=== PATIENT | male | born 1955 | race Caucasian/White ===

== ENCOUNTER → 2021-12-07 | Outpatient (CLI) | payer OTHER | END | disposition home or self-care (01) | LOC: COVID19 15:49 | PROVIDERS: ATTEND Internal Medicine | DX: Z20.822 Contact with and (suspected) exposure to COVID-19 (principal) ==

== ENCOUNTER 2022-04-19 10:51 | Inpatient (IN) | payer OTHER ==
[~2022-04-19] VITALS: Ht 180.3 cm; Wt 116.3 kg
[2022-04-19 11:02] VITALS: BP 204/111
[2022-04-19 11:32] LABS: BASO % 0.1 % (0.0-1.0); EOS # 0.1 10*3/uL (0.0-0.4); EOS % 1.5 % (1.0-4.0); HEMATOCRIT 37.9 % (42.0-52.0); LYMPH # 0.9 10*3/uL (1.3-4.4); LYMPH % 12.1 % (27.0-41.0); MEAN CELL VOLUME 96.7 fl (80.0-94.0); MEAN CORPUSCULAR HGB 30.9 pg (27.0-31.0); MEAN CORPUSCULAR HGB CONC 31.9 g/dl (33.0-37.0); MEAN PLATELET VOLUME 10.2 fl (9.6-12.3); MONO # 0.9 10*3/uL (0.1-1.0); NEUT # 5.6 10*3/uL (2.3-7.9); NEUT % 73.9 % (47.0-73.0); PLATELET COUNT AUTOMATED 286 10*3/uL (130-400); RED BLOOD COUNT 3.92 10*6/uL (4.50-5.90); RED CELL DISTRI WIDTH 13.8 % (0-14.5); WHITE BLOOD COUNT 7.5 10*3/uL (4.8-10.8)
[2022-04-19 11:48] LABS: ACT PARTIAL THROMBO TIME 51.3 SECONDS (20.0-32.1); ALKALINE PHOSPHATASE 79 U/L (45-117); BUN 9 mg/dl (7-24); CHLORIDE 102 mmol/L (98-107); CREATININE 0.69 mg/dL (0.70-1.30); LIPASE 92 U/L (73-393); POTASSIUM 3.3 mmol/L (3.5-5.1); SGOT/AST 20 IU/L (3-35); SGPT/ALT 24 U/L (12-78); SODIUM 137 mmol/L (136-145); TOTAL PROTEIN 7.2 gm/dL (6.4-8.2)
[2022-04-19 11:52] LABS: INTERNATIONAL NORM RATIO 4.9 (2.0-3.5)
[2022-04-19 12:22] VITALS: BP 188/102
[2022-04-19] MEDS ORDERED: LORAZEPAM1 MG PO (13:02)
[2022-04-19] MEDS ORDERED: GOOD NEIGHBOR L10 MG PO (13:03)
[2022-04-19] MEDS ORDERED: SERTRALINE HYD100 MG PO (13:03)
[2022-04-19] MEDS ORDERED: WARFARIN SOD5 MG PO (13:03)
[2022-04-19] MEDS ORDERED: CARVEDILOL25 MG PO (13:04)
[2022-04-19 13:24] VITALS: BP 148/78
[2022-04-19 16:00] VITALS: BP 142/65; BP 149/78
[2022-04-19 21:40] VITALS: BP 148/70
[2022-04-20] VITALS: BP 119/62
[2022-04-20 06:02] LABS: BUN 8 mg/dl (7-24); CHLORIDE 101 mmol/L (98-107); CHOLESTEROL 194 mg/dL (<200); CREATININE 0.68 mg/dL (0.70-1.30); LDL CHOLESTEROL 134 mg/dL (9-159); POTASSIUM 3.1 mmol/L (3.5-5.1); SODIUM 138 mmol/L (136-145); TRIGLYCERIDES 105 mg/dl (<150)
[2022-04-20 08:00] VITALS: BP 169/89
[2022-04-20 11:24] LABS: INTERNATIONAL NORM RATIO 3.9 (2.0-3.5)
[2022-04-20 12:00] VITALS: BP 131/78
[2022-04-20 16:00] VITALS: BP 133/75
[2022-04-20 20:00] VITALS: BP 159/80
[2022-04-21] VITALS: BP 131/61
[2022-04-21 06:03] LABS: BUN 10 mg/dl (7-24); CHLORIDE 101 mmol/L (98-107); POTASSIUM 3.1 mmol/L (3.5-5.1); SODIUM 138 mmol/L (136-145)
[2022-04-21 06:10] LABS: FREE T4 1.32 ng/dl (0.76-1.46)
[2022-04-21 06:19] LABS: BASO % 0.4 % (0.0-1.0); EOS # 0.3 10*3/uL (0.0-0.4); EOS % 5.3 % (1.0-4.0); HEMATOCRIT 37.4 % (42.0-52.0); LYMPH # 1.1 10*3/uL (1.3-4.4); LYMPH % 20.1 % (27.0-41.0); MEAN CELL VOLUME 96.9 fl (80.0-94.0); MEAN CORPUSCULAR HGB 31.1 pg (27.0-31.0); MEAN CORPUSCULAR HGB CONC 32.1 g/dl (33.0-37.0); MEAN PLATELET VOLUME 10.5 fl (9.6-12.3); MONO # 0.9 10*3/uL (0.1-1.0); MONO % 15.9 % (3.0-9.0); NEUT # 3.2 10*3/uL (2.3-7.9); NEUT % 57.8 % (47.0-73.0); PLATELET COUNT AUTOMATED 311 10*3/uL (130-400); RED BLOOD COUNT 3.86 10*6/uL (4.50-5.90); RED CELL DISTRI WIDTH 13.5 % (0-14.5); WHITE BLOOD COUNT 5.5 10*3/uL (4.8-10.8)
[2022-04-21 06:26] LABS: INTERNATIONAL NORM RATIO 2.5 (2.0-3.5)
[2022-04-21 08:00] VITALS: BP 170/78
[2022-04-21 12:00] VITALS: BP 115/57
[2022-04-21 16:00] VITALS: BP 158/85
[2022-04-21 20:00] VITALS: BP 157/91
[2022-04-22 06:16] LABS: BUN 11 mg/dl (7-24); CHLORIDE 103 mmol/L (98-107); CREATININE 0.57 mg/dL (0.70-1.30); POTASSIUM 3.4 mmol/L (3.5-5.1); SODIUM 140 mmol/L (136-145)
[2022-04-22 06:21] LABS: BASO % 0.3 % (0.0-1.0); EOS # 0.3 10*3/uL (0.0-0.4); EOS % 5.2 % (1.0-4.0); HEMATOCRIT 37.9 % (42.0-52.0); LYMPH # 1.2 10*3/uL (1.3-4.4); MEAN CELL VOLUME 97.9 fl (80.0-94.0); MEAN CORPUSCULAR HGB CONC 31.7 g/dl (33.0-37.0); MEAN PLATELET VOLUME 10.5 fl (9.6-12.3); MONO % 16.5 % (3.0-9.0); NEUT # 3.3 10*3/uL (2.3-7.9); NEUT % 56.5 % (47.0-73.0); PLATELET COUNT AUTOMATED 324 10*3/uL (130-400); RED BLOOD COUNT 3.87 10*6/uL (4.50-5.90); RED CELL DISTRI WIDTH 13.4 % (0-14.5); WHITE BLOOD COUNT 5.8 10*3/uL (4.8-10.8)
[2022-04-22 08:00] VITALS: BP 157/98
[2022-04-22 08:26] LABS: INTERNATIONAL NORM RATIO 1.8 (2.0-3.5)
[2022-04-22] MEDS ORDERED: LOSARTAN POTASS25 M1 PO (10:18)
[2022-04-22] MEDS ORDERED: ASPIRIN ADULT L81 M2 PO (10:18)
[2022-04-22] MEDS ORDERED: K-TAB20 MEQ PO (10:18)
[2022-04-22] MEDS ORDERED: FUROSEMIDE10 MG/1 M1 IV (10:18)
[2022-04-22] MEDS ORDERED: ATORVASTATIN CA40 M1 PO (10:18)
[2022-04-22] MEDS ORDERED: VIBRA-TAB100 MG PO (10:41)
== END 2022-04-22 11:25 | disposition home or self-care (01) | DRG 291 ==
LOC: ED 10:51 → EDHOLD 13:00 → 5E 13:00
PROVIDERS: Emergency Medicine; Internal Medicine Nephrology; ADMIT Internal Medicine; ATTEND Internal Medicine
DX: I11.0 Hypertensive heart disease with heart failure (principal); J96.01 Acute respiratory failure with hypoxia; J18.9 Pneumonia, unspecified organism; I50.31 Acute diastolic (congestive) heart failure; I25.10 Atherosclerotic heart disease of native coronary artery without angina pectoris; K21.9 Gastro-esophageal reflux disease without esophagitis; E87.6 Hypokalemia; E66.01 Morbid (severe) obesity due to excess calories; E87.5 Hyperkalemia; I35.0 Nonrheumatic aortic (valve) stenosis; Z68.36 Body mass index [BMI] 36.0-36.9, adult; Z95.1 Presence of aortocoronary bypass graft

== ENCOUNTER → 2022-05-01 | Outpatient (CLI) | payer OTHER ==
[~2022-05-01] MED LIST: ASPIRIN ADULT L81 M2 PO; ATORVASTATIN CA40 M1 PO; CARVEDILOL25 MG PO; FUROSEMIDE10 MG/1 M1 IV; GOOD NEIGHBOR L10 MG PO; K-TAB20 MEQ PO; LORAZEPAM1 MG PO; LOSARTAN POTASS25 M1 PO; SERTRALINE HYD100 MG PO; VIBRA-TAB100 MG PO; WARFARIN SOD5 MG PO
[2022-05-01 12:58] LABS: CHLORIDE 104 mmol/L (98-107); POTASSIUM 4.3 mmol/L (3.5-5.1); SODIUM 135 mmol/L (136-145)
[2022-05-01 13:14] LABS: BUN 23 mg/dl (7-24); CREATININE 0.89 mg/dL (0.70-1.30)
== END ==
LOC: LAB 12:07
PROVIDERS: ATTEND Internal Medicine
DX: I11.0 Hypertensive heart disease with heart failure (principal); I50.32 Chronic diastolic (congestive) heart failure

== ENCOUNTER → 2024-01-07 | Outpatient (CLI) | payer MEDICARE | END | disposition home or self-care (01) | LOC: RAD 12:14 | PROVIDERS: ATTEND Internal Medicine | DX: M16.11 Unilateral primary osteoarthritis, right hip (principal); M25.561 Pain in right knee ==

== ENCOUNTER 2024-03-31 14:29 | Emergency (ER) | payer MEDICARE ==
[~2024-03-31] VITALS: Ht 180.3 cm; Wt 115.7 kg
[2024-03-31 14:56] LABS: BASO % 0.2 % (0.0-1.0); EOS # 0.1 10*3/uL (0.0-0.4); EOS % 0.9 % (1.0-4.0); HEMATOCRIT 41.1 % (42.0-52.0); LYMPH # 1.2 10*3/uL (1.3-4.4); LYMPH % 10.3 % (27.0-41.0); MEAN CORPUSCULAR HGB 31.6 pg (27.0-31.0); MEAN CORPUSCULAR HGB CONC 31.9 g/dl (33.0-37.0); MONO # 1.4 10*3/uL (0.1-1.0); MONO % 12.4 % (3.0-9.0); NEUT # 8.7 10*3/uL (2.3-7.9); NEUT % 75.8 % (47.0-73.0); PLATELET COUNT AUTOMATED 213 10*3/uL (130-400); RED BLOOD COUNT 4.15 10*6/uL (4.50-5.90); RED CELL DISTRI WIDTH 13.5 % (0-14.5); WHITE BLOOD COUNT 11.4 10*3/uL (4.8-10.8)
[2024-03-31] MEDS ORDERED: methylPREDNISolone sod succ 125 MG VIAL IV ONE (15:00)
[2024-03-31] MEDS ORDERED: Albuterol Sulf/Ipratropium 3 ML VIAL NEB ONE (15:00)
[2024-03-31 15:19] LABS: ALKALINE PHOSPHATASE 120 U/L (46-116); BUN 13 mg/dl (9-23); CHLORIDE 100 mmol/L (98-107); POTASSIUM 3.7 mmol/L (3.4-5.1); SGPT/ALT 25 U/L (5-49); TOTAL PROTEIN 8.1 gm/dL (6.0-8.0)
[2024-03-31] MEDS ORDERED: Ceftriaxone Sodium 1 GM/10 ML SYR IV ONE (16:20)
[2024-03-31] MEDS ORDERED: IOHEXOL 350 MG/ML 100 ML VIAL IV ONE (16:45)
[2024-03-31] MEDS ORDERED: SODIUM CHLORIDE 0.9% 100 ML BAG IV ONE (16:45)
[2024-03-31] MEDS ORDERED: JARDIANCE10 MG PO (17:40)
[2024-03-31] MEDS ORDERED: WARFARIN SOD5 MG PO (17:42)
[2024-03-31] MEDS ORDERED: Coumadin2.5 MG PO (17:43)
== END 2024-03-31 18:03 | disposition left against medical advice (07) ==
LOC: ED 14:29
PROVIDERS: Physician Assistant Medical
DX: R06.02 Shortness of breath (principal); Z20.822 Contact with and (suspected) exposure to COVID-19; R05.9 Cough, unspecified; I50.9 Heart failure, unspecified; Z79.899 Other long term (current) drug therapy; Z79.01 Long term (current) use of anticoagulants; Z53.29 Procedure and treatment not carried out because of patient's decision for other reasons

== ENCOUNTER → 2025-08-04 | Outpatient (CLI) | payer OTHER ==
[~2025-08-04] MED LIST changes: +Coumadin2.5 MG PO; +JARDIANCE10 MG PO
== END ==
LOC: ORTHO 09:20
PROVIDERS: ATTEND Orthopaedic Surgery
DX: M16.11 Unilateral primary osteoarthritis, right hip (principal); M25.851 Other specified joint disorders, right hip; M25.761 Osteophyte, right knee; M25.551 Pain in right hip

== ENCOUNTER → 2025-08-10 | Day surgery (SDC) | payer OTHER ==
[~2025-08-10] VITALS: Ht 180.3 cm; Wt 117.9 kg
[~2025-08-10] MED LIST changes: +Betamethasone ACE/Betamethas 30 MG/5 ML VIAL IJ SCH; +EPINEPHrine/Lidocaine Hydroc 10 ML VIAL ONE; +Lidocaine Hydrochloride 30 ML VIAL ONE; +Lidocaine Hydrochloride 5 ML AMP IJ SCH
[2025-08-10 08:19] VITALS: BP 135/70
[2025-08-10 09:15] VITALS: BP 161/94
[2025-08-10 09:20] VITALS: BP 159/91
[2025-08-10 09:25] VITALS: BP 159/88
== END | disposition home or self-care (01) ==
LOC: SDC 08-09 13:15
PROVIDERS: ATTEND Orthopaedic Surgery
DX: M16.11 Unilateral primary osteoarthritis, right hip (principal); I10 Essential (primary) hypertension; E78.00 Pure hypercholesterolemia, unspecified; Z79.899 Other long term (current) drug therapy; Z98.890 Other specified postprocedural states

== ENCOUNTER → 2025-09-16 | Day surgery (SDC) | payer OTHER ==
[~2025-09-16] VITALS: Ht 180.3 cm; Wt 115.7 kg
[~2025-09-16] MED LIST changes: -Betamethasone ACE/Betamethas 30 MG/5 ML VIAL IJ SCH; +Lidocaine Hydrochloride 5 ML AMP IJ ONE; -Lidocaine Hydrochloride 5 ML AMP IJ SCH; +Lidocaine Hydrochloride 5 ML AMP ONE; +TRIAMCINOLONE ACETONIDE 40 MG/ML VIAL IJ ONE
[2025-09-16 09:41] VITALS: BP 124/46
[2025-09-16 10:20] VITALS: BP 130/83
[2025-09-16 10:25] VITALS: BP 140/87
== END | disposition home or self-care (01) ==
LOC: SDC 09-14 08:45
PROVIDERS: ATTEND Orthopaedic Surgery
DX: M16.11 Unilateral primary osteoarthritis, right hip (principal); I10 Essential (primary) hypertension; I25.2 Old myocardial infarction; E78.00 Pure hypercholesterolemia, unspecified; E11.9 Type 2 diabetes mellitus without complications; J18.9 Pneumonia, unspecified organism; F41.9 Anxiety disorder, unspecified; Z95.1 Presence of aortocoronary bypass graft; Z98.890 Other specified postprocedural states; Z79.899 Other long term (current) drug therapy